=== PATIENT | female | born 1980 | race Asian ===

== ENCOUNTER 2016-09-21 17:30 | Emergency (ER) | payer MEDICARE, OTHER ==
[~2016-09-21] VITALS: Ht 162.6 cm; Wt 90.0 kg
[2016-09-21] MEDS ORDERED: SODIUM CHLORIDE 0.9% 1,000 ML IV ONE (18:00)
[2016-09-21] MEDS ORDERED: LORazepam 2 MG/ML VIAL IVP ONE ×2 (18:00→19:30)
[2016-09-21 18:02] LABS: GLUCOSE,POINT OF CARE 110 MG/DL (70-110)
[2016-09-21 18:05] LABS: BASOPHILS % (AUTO) 0.4 % (0.0-2.0); EOSINOPHILS % (AUTO) 1.2 % (1.0-6.0); HEMATOCRIT 33.4 % (36-46); HEMOGLOBIN 10.8 g/dL (12.0-16.0); LYMPHOCYTES # (AUTO) 1.7 K/uL (1.0-4.8); LYMPHOCYTES % (AUTO) 15.5 % (22.0-44.0); MEAN CORPUSCULAR HEMOGLOBIN 28.7 pg (26.0-34.0); MEAN CORPUSCULAR HGB CONC 32.3 G/dL (31.0-37.0); MEAN CORPUSCULAR VOLUME 89 fL (80-100); MONOCYTES # (AUTO) 1.1 K/uL (0.1-1.0); MONOCYTES % (AUTO) 10.3 % (2.0-9.0); NEUTROPHILS % (AUTO) 72.6 % (40.0-70.0); PLATELET COUNT (AUTO) 383 K/uL (150-450); RED BLOOD CELL COUNT(AUTO) 3.75 MIL/uL (4.00-5.20); RED CELL DISTRIBUTION WIDTH 15.8 % (11.5-14.5)
[2016-09-21 18:18] LABS: ANION GAP 12 mmol/L (8-16); CALCIUM, TOTAL 8.9 mg/dL (8.8-10.5); CARBON DIOXIDE 27 mmol/L (22-29); CHLORIDE 103 mmol/L (98-107); CREATININE 0.84 mg/dL (0.60-1.30); GLOMERULAR FILTR. RATE CALC > 60 mL/min (>60); POTASSIUM 3.1 mmol/L (3.5-5.1); SODIUM SERUM 142 mmol/L (136-145); UREA NITROGEN, BLOOD 4 mg/dL (7-18)
[2016-09-21 18:23] LABS: ALANINE AMINOTRANSFERASE 18 U/L (12-78); ALBUMIN 3.8 g/dL (3.4-5.0); ASPARTATE AMINOTRANSFERASE 13 U/L (15-37); BILIRUBIN,TOTAL 0.2 mg/dL (0.1-1.0); TOTAL PROTEIN, SERUM 7.5 g/dL (6.4-8.2)
[2016-09-21] MEDS ORDERED: METO25 PO (18:32)
[2016-09-21] MEDS ORDERED: CLOZ100 PO (18:32)
[2016-09-21] MEDS ORDERED: QUET50TA PO (18:32)
[2016-09-21] MEDS ORDERED: LEVO25TA9 PO (18:32)
[2016-09-21] MEDS ORDERED: METF500T4 PO (18:32)
[2016-09-21] MEDS ORDERED: MODA100 PO (18:32)
[2016-09-21] MEDS ORDERED: DULO20CA30 PO (18:32)
[2016-09-21] MEDS ORDERED: HALOD100I IM (18:32)
[2016-09-21 18:42] LABS: APPEARANCE,URINE CLOUDY (CLEAR); GLUCOSE, URINE (UA) NEGATIVE (NEGATIVE); KETONES,URINE NEGATIVE (NEGATIVE); LEUKOCYTE ESTERASE ,URINE MODERATE (NEGATIVE); OCCULT BLOOD,URINE NEGATIVE (NEGATIVE); PROTEIN,URINE NEGATIVE (NEGATIVE)
[2016-09-21 18:43] LABS: ADD UA MICROSCOPIC YES
[2016-09-21] MEDS ORDERED: POTASSIUM CHLORIDE 20 MEQ ER TABLET PO ONE (18:45)
[2016-09-21 19:05] LABS: RBC,URINE None Seen /HPF (0-2); SQUAMOUS EPITHELIAL CELL,UR Moderate /LPF (None Seen); TRANSITIONAL EPI CELLS,URINE Few /LPF (None Seen)
[2016-09-21 19:50] VITALS: BP 125/73
[2016-09-21] MEDS ORDERED: CEPHALEXIN MONOHYDRATE 500 MG CAPSULE PO ONE (20:15)
== END 2016-09-21 20:54 | disposition home or self-care (01) ==
LOC: EMS 17:31
DX: F20.9 Schizophrenia, unspecified (principal); R00.0 Tachycardia, unspecified; N39.0 Urinary tract infection, site not specified; F15.10 Other stimulant abuse, uncomplicated; F17.210 Nicotine dependence, cigarettes, uncomplicated; F11.90 Opioid use, unspecified, uncomplicated; E11.9 Type 2 diabetes mellitus without complications; K21.9 Gastro-esophageal reflux disease without esophagitis
CPT/HCPCS: 36415; 80053; 80307; 81001; 82962; 84703; 85025; 87086; 93005; 96361; 96374; 96376; 99291; 99406; G0480; J2060; J7030